=== PATIENT | female | born 1950 | race African-American/Black ===

== ENCOUNTER 2016-07-07 10:30 | Outpatient (CLI) | payer OTHER ==
[2016-07-07 10:52] LABS: Bilirubin Negative (Negative); Blood, Urine Trace (Negative); Glucose, Urine (Dipstick) Negative (Negative); Ketone, Urine Negative (Negative); Nitrite Negative (Negative); Protein, Urine (Dipstick) Negative (Neg-Trace); Urobilinogen 0.2 mg/dL (0.2-1.0)
== END 2016-07-07 10:31 | disposition home or self-care (01) ==
LOC: NAV LAB 10:30
DX: Z00.00 Encounter for general adult medical examination without abnormal findings (principal)
CPT/HCPCS: 81003

== ENCOUNTER 2024-01-10 14:28 | Emergency (ER) | payer MEDICARE ==
[2024-01-10 16:47] LABS: SARS-CoV-2 E Target Negative; SARS-CoV-2 N2 Target Negative; SARS-CoV-2 NAA Rapid Test Not Detected (NotDetected); SARS-CoV-2 RdRP gene Negative
== END 2024-01-10 16:15 | disposition home or self-care (01) ==
LOC: NAV ERS 14:28
DX: Z20.822 Contact with and (suspected) exposure to COVID-19 (principal)
CPT/HCPCS: 99282; U0002

== ENCOUNTER 2025-05-09 17:01 | Emergency (ER) | payer MEDICARE, SELFPAY ==
[2025-05-09] MEDS ORDERED: Bacitracin 1 PK ONE (17:43)
[2025-05-09] MEDS ORDERED: Lidocaine 1% (PF) 30 ML VIAL ONE (17:44)
== END 2025-05-09 18:45 | disposition home or self-care (01) ==
LOC: NAV ERS 17:01
DX: S61.217A Laceration without foreign body of left little finger without damage to nail, initial encounter (principal); W26.0XXA Contact with knife, initial encounter; Y93.G9 Activity, other involving cooking and grilling; Z23 Encounter for immunization
CPT/HCPCS: 12001; 90471; 90715; J2003